=== PATIENT | female | born 1995 | race Caucasian/White ===

== ENCOUNTER 2020-11-07 16:13 | Emergency (ER) | payer SELFPAY ==
[~2020-11-07] VITALS: Ht 162.6 cm; Wt 54.4 kg
[2020-11-07 16:23] VITALS: BP 117/61
--- NOTE | 2020-11-07 16:23 | NUR ---
ED Nurse Note: Pt walked in to Ed from home c/o lower abdominal cramps x5 days ago. Pt also reports foul smelling, reddish vaginal discharge. Pt has hx of chlamydia. Denies dysuria. AAOx4, no SOB. Afebrile.
[2020-11-07] MEDS ORDERED: cefTRIAXone 500mg Inj IM ONE (16:45)
[2020-11-07] MEDS ORDERED: Fluconazole 150mg tab ORAL ONE (16:45)
[2020-11-07] MEDS ORDERED: Lidocaine 1% MPF 10mg/ml 5ml INJ ONE (16:45)
[2020-11-07] MEDS ORDERED: Azithromycin 250mg tab ORAL ONE (16:45)
[2020-11-07 17:33] LABS: APPEARANCE,URINE CLEAR; BILIRUBIN, URINE NEGATIVE (NEGATIVE); GLUCOSE, URINE (UA) NEGATIVE (NEGATIVE); KETONES,URINE NEGATIVE (NEGATIVE); LEUKOCYTE ESTERASE ,URINE NEGATIVE (NEGATIVE); NITRITE,URINE NEGATIVE (NEGATIVE); PH,URINE 6 (4.5-8.0); PROTEIN,URINE 1+ (NEGATIVE); UROBILINOGEN,URINE NORMAL MG/DL (0.0-1.0)
[2020-11-07 17:36] LABS: COLOR,URINE YELLOW
--- NOTE | 2020-11-07 17:42 | Emergency Room Report ---
History of Present Illness General Chief Complaint: Female Urogenital Problems Source: Patient Present Illness HPI 25-year-old female with no signal past medical history here complaining of 1 week of foul odor vaginal discharge describing it as yellow. Reports that she is sexually active and started after being sexually active. Denies control condom use. Has not taken medication for symptom relief. Denies dysuria and hematuria. Does not recall her last menstrual period denies fever and chills, diffuse abdominal pain. No guarding noted. Appears to be afebrile. Denies vaginal pruritus. Has not taken medication for symptom relief. Allergies: Coded Allergies: No Known Allergies (Unverified , 11/07/20) COVID-19 Screening Contact w/high risk pt: No Experienced COVID-19 symptoms?: No COVID-19 Testing performed [employer]: No Patient History Past Medical History: see triage record Past Surgical History: none Pertinent Family History: none Last Menstrual Period: Has IUD Now: No Immunizations: UTD Reviewed Nursing Documentation: PMH: Agreed; PSxH: Agreed Nursing Documentation-PMH Past Medical History: No Stated History Review of Systems All Other Systems: negative except mentioned in HPI Physical Exam Vital Signs Date Time Temp Pulse Resp B/P (MAP) Pulse Ox O2 Delivery O2 Flow Rate FiO2 11/07/20 16:15 97.9 70 19 117/61 (79) 96 Room Air Sp02 EP Interpretation: reviewed, normal General Appearance: no apparent distress, alert, GCS 15, non-toxic Head: normocephalic, atraumatic Eyes: bilateral eye normal inspection, bilateral eye PERRL ENT: hearing grossly normal, no angioedema, normal voice Neck: supple Respiratory: no respiratory distress, no retraction, no accessory muscle use Cardiovascular #1: regular rate, rhythm, no JVD, no murmur Gastrointestinal: non tender, soft, no mass Rectal: deferred Genitourinary: no CVA tenderness Musculoskeletal: back normal Neurologic: alert, motor strength/tone normal, oriented x3, sensory intact, responsive, speech normal Psychiatric: judgement/insight normal, memory normal, mood/affect normal, no suicidal/homicidal ideation Skin: no rash Lymphatic: no adenopathy Medical Decision Making PA Attestation All diagnosis and treatment plans were discussed and reviewed by my supervising physician Dr. Roche Diagnostic Impression: Primary Impression: Vaginitis Additional Impression: Possible exposure to STD ER Course 25-year-old female with no signal past medical history here complaining of 1 week of foul odor vaginal discharge describing it as yellow. Reports that she is sexually active and started after being sexually active. Denies control condom use. Has not taken medication for symptom relief. Denies dysuria and hematuria. Does not recall her last menstrual period denies fever and chills, diffuse abdominal pain. No guarding noted. Appears to be afebrile. Denies vaginal pruritus. Has not taken medication for symptom relief. Ddx considered but are not limited to: vaginitis, yeast infection, BV, chlamydia, Gonorrhea, syphilis, HIV, herpes 1 or 2 Vital signs: are WNL, pt. is afebrile H&PE are most consistent with : Vaginitis, possible exposure to STD Patient request treatment for BV, chlamydia gonorrhea defers treatment for syphilis Patient referred that we do not routinely offer testing for STD here however gave her a list of STD clinics to follow-up with ORDERS: UA, urine test, Flagyl ED INTERVENTIONS: Azithromycin patient preferred over doxycycline, Rocephin IM, Diflucan DISCHARGE: At this time pt. is stable for d/c to home. Will provide printed patient care instructions, and any necessary prescriptions. Care plan and follow up instructions have been discussed with the patient prior to discharge. Last Vital Signs Date Time Temp Pulse Resp B/P (MAP) Pulse Ox O2 Delivery O2 Flow Rate FiO2 11/07/20 16:23 97.9 70 19 117/61 96 Room Air Disposition: HOME, SELF-CARE Condition: Stable Scripts Metronidazole* (FLAGYL*) 500 Mg Tablet 500 MG ORAL BID for 7 Days, #14 TAB Prov: Sharmila Agee 11/07/20 Referrals: NOT CHOSEN IPA/,REFERRING (PCP) Patient Instructions: Vaginitis Additional Instructions: Take medication as directed, with any alcohol while taking this medication, worsening symptoms return to the emergency room Sharmila Agee Nov 07, 2020 17:42
[2020-11-07] MEDS ORDERED: METRONIDAZOLE500 MG ORAL (17:44)
[2020-11-07 17:50] VITALS: BP 117/61
--- NOTE | 2020-11-07 17:50 | NUR ---
ER DISCHARGE NOTE: Patient is cleared to be discharged per ERMD, pt is aox4, on room air, with stable vital signs. pt was given dc and prescription instructions, pt was able to verbalize understanding, pt id band removed without complications. pt is able to ambulate with steady gait. pt took all belongings.
== END 2020-11-07 17:50 | disposition home or self-care (01) ==
LOC: EMR 16:40
DX: N76.0 Acute vaginitis (principal)
CPT/HCPCS: 81003; 81025; 96372; 99283